=== PATIENT | male | born 1995 | race American Indian/Alaskan Native ===

== ENCOUNTER 2017-05-15 11:05 | Emergency (ER) | payer SELFPAY ==
[2017-05-15 11:50] LABS: Hematocrit 41.8 % (35.5-45.6); Hemoglobin 13.7 gm/dl (11.8-15.2); Mean Corpuscular HGB Conc 33 % (32-34); Mean Corpuscular Hemoglobin 29 pg (28-32); Mean Corpuscular Volume 87 fl (84-94); Platelet Count 239 K/mm3 (140-440); Red Cell Distribution Width 12.5 % (13.2-15.2); White Blood Count 3.1 K/mm3 (4.5-11.0)
[2017-05-15 12:30] LABS: Blastocytes % (Manual) 0 %; Diff Status Complete; RBC Morphology Normal
[2017-05-15 12:49] LABS: Alanine Aminotransferase 22 units/L (7-56); Albumin/Globulin Ratio 1.6 %; Alkaline Phosphatase 35 units/L (35-129); Anion Gap 19 mmol/L; BUN/Creatinine Ratio 13.75; Blood Urea Nitrogen 11 mg/dL (9-20); Calcium 8.2 mg/dL (8.4-10.2); Carbon Dioxide 23 mmol/L (22-30); Chloride 105.2 mmol/L (98-107); Glucose 87 mg/dL (75-100); Lipase 24 units/L (13-60); Potassium 3.7 mmol/L (3.6-5.0); Sodium 143 mmol/L (137-145); Total Protein 6.5 g/dL (6.3-8.2)
[2017-05-15 14:02] LABS: Bilirubin,Urine NEG (Negative); Blood,Urine NEG (Negative); Ketones,Urine NEG (Negative); Leukocyte Esterase,Urine NEG (Negative); Mucus,Urine 2+ /HPF; Nitrite,Urine NEG (Negative)
[2017-05-15] MEDS ORDERED: ALUM-MAG HYDROX-SIMETH 200-200-20MG/5ML PO ONE (18:02)
[2017-05-15] MEDS ORDERED: CARAFATE PO ONE (18:02)
[2017-05-15] MEDS ORDERED: PEPCID PO ONE (18:02)
--- NOTE | 2017-05-15 18:03 | Emergency Department Report ---
ED General Adult HPI - General Chief complaint: Abdominal Pain Stated complaint: ABD PAIN/VOMITING Time Seen by Provider: 05/15/17 17:39 Source: patient, RN notes reviewed Mode of arrival: Ambulatory Limitations: No Limitations - History of Present Illness Initial comments: This is a 21-year-old male. He is previously unknown to me. He does not have a local primary care doctor. He denies a past medical history of abdominal surgeries. He presents to the ER with intermittent epigastric pain for over a year. The pain is intermittent, crampy, and does not radiate anywhere. It decreases when he eats. He has no headache, neck pain, chest pain, shortness of breath, hematemesis, bright red blood per rectum. There is no testicular pain. No irritative or obstructive urinary symptoms. No right lower quadrant pain. Occasionally consumes NSAIDs secondary to chronic headaches. He reports this episode of epigastric abdominal pain is similar to prior episodes, only slightly more intense. He is requesting to eat. -: Gradual Location: abdomen Radiation: non-radiation Severity scale (0 -10): 7 Quality: aching Consistency: intermittent Improves with: eating, rest Associated Symptoms: denies: confusion, chest pain, cough, diaphoresis, headaches, loss of appetite, malaise, nausea/vomiting, rash, shortness of breath , syncope, weakness - Related Data Previous Rx's Medication Instructions Recorded Last Taken Type Dicyclomine [Bentyl] 10 mg PO QID PRN #20 capsule 05/15/17 Unknown Rx Famotidine [Pepcid] 20 mg PO QDAY #30 tablet 05/15/17 Unknown Rx Ondansetron [Zofran Odt] 4 mg PO QID PRN #20 tab.rapdis 05/15/17 Unknown Rx Sucralfate [Carafate] 1 gm PO ACHS #120 tablet 05/15/17 Unknown Rx Allergies Allergy/AdvReac Type Severity Reaction Status Date / Time No Known Allergies Allergy Unverified 05/15/17 11:21 ED Review of Systems ROS: Stated complaint: ABD PAIN/VOMITING Other details as noted in HPI Constitutional: denies: malaise Eyes: denies: vision change ENT: denies: epistaxis Respiratory: denies: cough Cardiovascular: denies: chest pain, palpitations Gastrointestinal: abdominal pain Genitourinary: denies: dysuria, testicular pain Musculoskeletal: denies: back pain Skin: denies: lesions Neurological: denies: headache Psychiatric: denies: anxiety ED Past Medical Hx - Past Medical History Previous Medical History?: No - Surgical History Past Surgical History?: Yes Additional Surgical History: R knee and R hand surgery in 08/2015 - Social History Smoking Status: Former Smoker Substance Use Type: None - Medications Home Medications: Home Medications Medication Instructions Recorded Confirmed Last Taken Type Dicyclomine [Bentyl] 10 mg PO QID PRN #20 capsule 05/15/17 Unknown Rx Famotidine [Pepcid] 20 mg PO QDAY #30 tablet 05/15/17 Unknown Rx Ondansetron [Zofran Odt] 4 mg PO QID PRN #20 tab.rapdis 05/15/17 Unknown Rx Sucralfate [Carafate] 1 gm PO ACHS #120 tablet 05/15/17 Unknown Rx ED Physical Exam - General Limitations: No Limitations General appearance: alert, in no apparent distress - Head Head exam: Present: atraumatic, normocephalic - Eye Eye exam: Present: normal appearance, EOMI. Absent: nystagmus - ENT ENT exam: Present: normal exam, normal orophraynx, mucous membranes moist, normal external ear exam - Neck Neck exam: Present: normal inspection, full ROM. Absent: tenderness, meningismus - Respiratory Respiratory exam: Present: normal lung sounds bilaterally. Absent: respiratory distress, wheezes, rales, rhonchi, stridor, chest wall tenderness, accessory muscle use, decreased breath sounds, prolonged expiratory - Cardiovascular Cardiovascular Exam: Present: regular rate, normal rhythm, normal heart sounds. Absent: bradycardia, tachycardia, irregular rhythm, systolic murmur, diastolic murmur, rubs, gallop - GI/Abdominal GI/Abdominal exam: Present: soft, tenderness, normal bowel sounds, other (there is no right upper quadrant tenderness. There is minimal epigastric tenderness. There is no right lower quadrant tenderness. There is negative Virk sign. There is negative Rovsing sign.). Absent: distended, guarding, rebound, rigid, pulsatile mass - Rectal Rectal exam: Present: deferred - Extremities Exam Extremities exam: Present: normal inspection, full ROM, normal capillary refill. Absent: pedal edema, joint swelling, calf tenderness - Back Exam Back exam: Present: normal inspection, full ROM. Absent: tenderness, CVA tenderness (R), CVA tenderness (L), muscle spasm, paraspinal tenderness, vertebral tenderness - Neurological Exam Neurological exam: Present: alert, oriented X3, normal gait, other (Extraocular movements intact. Tongue midline. No facial droop. Facial sensation intact to light touch in the V1, V2, V3 distribution bilaterally. 5 and 5 strength in 4 extremities.. Sensation is intact to light touch in 4 extremities.). Absent : motor sensory deficit - Psychiatric Psychiatric exam: Present: normal affect, normal mood - Skin Skin exam: Present: warm, dry, intact, normal color. Absent: rash ED Course Vital Signs 05/15/17 05/15/17 05/15/17 11:13 16:45 16:50 Temperature 98.3 F Pulse Rate 73 Respiratory 18 Rate Blood Pressure 112/65 120/66 120/66 Blood Pressure [Left] O2 Sat by Pulse 99 100 97 Oximetry 05/15/17 05/15/17 05/15/17 16:52 16:53 17:00 Temperature 97.6 F Pulse Rate 58 L Respiratory 18 18 Rate Blood Pressure 119/71 Blood Pressure 120/66 [Left] O2 Sat by Pulse 97 97 98 Oximetry 05/15/17 05/15/17 05/15/17 17:10 17:20 17:30 Temperature Pulse Rate Respiratory Rate Blood Pressure 119/71 119/71 119/71 Blood Pressure [Left] O2 Sat by Pulse 99 99 99 Oximetry 05/15/17 05/15/17 05/15/17 17:40 17:50 18:00 Temperature Pulse Rate Respiratory Rate Blood Pressure 119/71 119/71 116/69 Blood Pressure [Left] O2 Sat by Pulse 99 97 99 Oximetry 05/15/17 05/15/17 05/15/17 18:10 18:20 18:30 Temperature Pulse Rate Respiratory Rate Blood Pressure 116/69 116/69 116/69 Blood Pressure [Left] O2 Sat by Pulse 99 99 99 Oximetry 05/15/17 18:40 Temperature Pulse Rate Respiratory Rate Blood Pressure 116/69 Blood Pressure [Left] O2 Sat by Pulse 99 Oximetry ED Medical Decision Making - Lab Data Result diagrams: 05/15/17 11:38 05/15/17 11:38 Vital Signs 05/15/17 05/15/17 05/15/17 11:13 16:45 16:50 Temperature 98.3 F Pulse Rate 73 Respiratory 18 Rate Blood Pressure 112/65 120/66 120/66 Blood Pressure [Left] O2 Sat by Pulse 99 100 97 Oximetry 05/15/17 05/15/17 16:52 16:53 Temperature 97.6 F Pulse Rate 58 L Respiratory 18 18 Rate Blood Pressure Blood Pressure 120/66 [Left] O2 Sat by Pulse 97 97 Oximetry Lab Results 05/15/17 05/15/17 05/15/17 Range/Units 11:38 11:38 Unknown WBC 3.1 L (4.5-11.0) K/mm3 RBC 4.80 (3.65-5.03) M/mm3 Hgb 13.7 (11.8-15.2) gm/dl Hct 41.8 (35.5-45.6) % MCV 87 (84-94) fl MCH 29 (28-32) pg MCHC 33 (32-34) % RDW 12.5 L (13.2-15.2) % Plt Count 239 (140-440) K/mm3 [place] % (Auto) Od Grinder Operator Add Manual Diff Complete Total Counted 100 Seg Neuts % (Manual) 67.0 (40.0-70.0) % Band Neutrophils % 0 % Lymphocytes % (Manual) 22.0 (13.4-35.0) % Reactive Lymphs % (Man) 0 % Monocytes % (Manual) 8.0 H (0.0-7.3) % Eosinophils % (Manual) 2.0 (0.0-4.3) % Basophils % (Manual) 1.0 (0.0-1.8) % Metamyelocytes % 0 % Myelocytes % 0 % Promyelocytes % 0 % Blast Cells % 0 % Nucleated RBC % Not Reportable Seg Neutrophils # Man 2.1 (1.8-7.7) K/mm3 Band Neutrophils # 0.0 K/mm3 Lymphocytes # (Manual) 0.7 L (1.2-5.4) K/mm3 Abs React Lymphs (Man) 0.0 K/mm3 Monocytes # (Manual) 0.2 (0.0-0.8) K/mm3 Eosinophils # (Manual) 0.1 (0.0-0.4) K/mm3 Basophils # (Manual) 0.0 (0.0-0.1) K/mm3 Metamyelocytes # 0.0 K/mm3 Myelocytes # 0.0 K/mm3 Promyelocytes # 0.0 K/mm3 Blast Cells # 0.0 K/mm3 WBC Morphology Not Reportable Hypersegmented Neuts Not Reportable Hyposegmented Neuts Not Reportable Hypogranular Neuts Not Reportable Smudge Cells Not Reportable Toxic Granulation Not Reportable Toxic Vacuolation Not Reportable Dohle Bodies Not Reportable Pelger-Huet Anomaly Not Reportable Ana Rods Not Reportable Platelet Estimate Appears normal Clumped Platelets Not Reportable Plt Clumps, EDTA Not Reportable Large Platelets Not Reportable Giant Platelets Not Reportable Platelet Satelliting Not Reportable Plt Morphology Comment Not Reportable RBC Morphology Normal Dimorphic RBCs Not Reportable Polychromasia Not Reportable Hypochromasia Not Reportable Poikilocytosis Not Reportable Anisocytosis Not Reportable Microcytosis Not Reportable Macrocytosis Not Reportable Spherocytes Not Reportable Pappenheimer Bodies Not Reportable Sickle Cells Not Reportable Target Cells Not Reportable Tear Drop Cells Not Reportable Ovalocytes Not Reportable Helmet Cells Not Reportable [place] Bodies Not Reportable [place] Rings Not Reportable [place] Cells Not Reportable Bite Cells Not Reportable Crenated Cell Not Reportable Elliptocytes Not Reportable Acanthocytes (Spur) Not Reportable Rouleaux Not Reportable Hemoglobin C Crystals Not Reportable Schistocytes Not Reportable Malaria parasites Not Reportable Flo Bodies Not Reportable Hem Pathologist Commnt No Sodium 143 (137-145) mmol/L Potassium 3.7 (3.6-5.0) mmol/L Chloride 105.2 (98-107) mmol/L Carbon Dioxide 23 (22-30) mmol/L Anion Gap 19 mmol/L BUN 11 (9-20) mg/dL Creatinine 0.8 (0.8-1.5) mg/dL Estimated GFR > 60 ml/min BUN/Creatinine Ratio 13.75 % Glucose 87 (75-100) mg/dL Calcium 8.2 L (8.4-10.2) mg/dL Total Bilirubin 0.90 (0.1-1.2) mg/dL AST 23 (5-40) units/L ALT 22 (7-56) units/L Alkaline Phosphatase 35 (35-129) units/L Total Protein 6.5 (6.3-8.2) g/dL Albumin 4.0 (3.9-5) g/dL Albumin/Globulin Ratio 1.6 % Lipase 24 (13-60) units/L Urine Color Yellow (Yellow) Urine Turbidity Clear (Clear) Urine pH 5.0 (5.0-7.0) Ur Specific [place] 1.028 (1.003-1.030) Urine Protein 30 mg/dl (Negative) mg/dL Urine Glucose (UA) Neg (Negative) mg/dL Urine Ketones Neg (Negative) mg/dL Urine Blood Neg (Negative) Urine Nitrite Neg (Negative) Urine Bilirubin Neg (Negative) Urine Urobilinogen 4.0 (<2.0) mg/dL Ur Leukocyte Esterase Neg (Negative) Urine WBC (Auto) 2.0 (0.0-6.0) /HPF Urine RBC (Auto) 3.0 (0.0-6.0) /HPF U Epithel Cells (Auto) < 1.0 (0-13.0) /HPF Urine Mucus 2+ /HPF - Medical Decision Making Differential diagnosis: GERD, gastritis, reflux, H. pylori, gastric ulcer, duodenal ulcer Assessment and plan: 21-year-old male with intermittent epigastric pain that is associated with food for over a year. He is afebrile with reassuring vital signs, and is tolerating liquid feeds. He has a benign abdominal examination, and felt improved after conservative symptomatic therapy. I don't believe based on his history, physical, laboratory studies that he requires emergent intervention imaging at this time. The patient was instructed as to diet and lifestyle modifications, he will be discharged with appropriate symptomatic therapy, and instructed to follow up with outpatient gastroenterology. Return precautions are reviewed. No pulmonary embolus or DVT risk factors, low risk by well's criteria, perc negative Critical care attestation.: If time is entered above; I have spent that time in minutes in the direct care of this critically ill patient, excluding procedure time. ED Disposition Clinical Impression: Epigastric abdominal pain Disposition: - TO HOME OR SELFCARE Is pt being admited?: No Does the pt Need Aspirin: No Condition: Stable Instructions: Gastritis (ED) Additional Instructions: Avoid consumption of heavy and spicy foods. Avoid consumption of alcohol, Motrin, ibuprofen. Follow up with the primary care doctor or job placement officer within the next 7-10 days. Return to the ER right away with new pain, worsened pain, migration of pain, fevers, chills, chest pain, shortness of breath, intractable nausea or vomiting, inability to tolerate liquid feeds. Prescriptions: Dicyclomine [Bentyl] 10 mg PO QID PRN #20 capsule PRN Reason: Pain Famotidine [Pepcid] 20 mg PO QDAY #30 tablet Ondansetron [Zofran Odt] 4 mg PO QID PRN #20 tab.rapdis PRN Reason: Nausea Sucralfate [Carafate] 1 gm PO ACHS #120 tablet Referrals: PRIMARY CARE, [Primary Care Provider] - 3-5 Days HUMAIRA TORRES MD [Staff Physician] - 3-5 Days VALERIE COOPER MD [Staff Physician] - 3-5 Days Forms: Work/School Release Form(ED)
[2017-05-15 18:52] VITALS: BP 116/69
== END 2017-05-15 18:50 | disposition home or self-care (01) ==
LOC: ED 11:05
DX: R10.13 Epigastric pain (principal); Z87.891 Personal history of nicotine dependence
CPT/HCPCS: 36415; 80053; 81001; 83690; 85007; 85025; 99283